=== PATIENT | male | born 1985 | race African-American/Black ===

== ENCOUNTER 2017-05-25 09:43 | Emergency (ER) | payer SELFPAY ==
[~2017-05-25 09:43] MED LIST: SULF1TAB24 PO
--- NOTE | 2017-05-25 11:08 | PHYS DOC ---
Past Medical History Past Medical History: No Pertinent History Past Surgical History: No Surgical History Alcohol Use: Occasionally Drug Use: None Adult General Chief Complaint Chief Complaint: HEADACHE HPI HPI Patient is a 31 year old male who presents with intermittent right-sided headaches for the last 2 months. It does improve when he takes ibuprofen or Tylenol but then it recurs. He denies any fevers, falls, trauma, no recent sinus drainage, no ear pain. He denies any neck stiffness. He has been seen by his primary care physician but denies any workup for the headaches. pcp is Dr. Arias. Review of Systems Review of Systems Constitutional: Denies fever or chills Eyes: Denies eye pain or discharge HENT: Denies nasal congestion or sore throat Respiratory: Denies cough or shortness of breath [] Cardiovascular: Denies chest pain or edema GI: Denies abdominal pain, no nausea or vomiting : Denies dysuria Musculoskeletal: Denies back pain Extremities: denies joint pain [] Integument: Denies rash Neurologic: denies focal weakness , denies sensory changes [] Current Medications Current Medications Current Medications Medications (Trade) Dose Ordered Sig/Mary Start Time Stop Time Status Last Admin Dose Admin Ibuprofen (Motrin) 800 mg 1X ONCE 05/25/17 11:15 05/25/17 11:16 DC 05/25/17 11:23 800 MG Allergies Allergies Allergies Coded Allergies Type Severity Reaction Last Updated Verified No Known Drug Allergies 11/25/14 No Physical Exam Physical Exam Constitutional: Well developed, well nourished, no acute distress, non-toxic appearance. [] HENT: Normocephalic, atraumatic, bilateral external ears normal, oropharynx moist, no oral exudates, nose normal. [] Eyes: PERRLA, EOMI, conjunctiva normal, no discharge. [] Neck: Normal range of motion, no tenderness, supple, no stridor. [] Cardiovascular:Heart rate regular with regular rhythm, no murmur [] Lungs & Thorax: Bilateral breath sounds clear to auscultation, no wheeze Abdomen: Bowel sounds normal, soft, no tenderness, no masses, no pulsatile masses. [] Skin: Warm, dry, no erythema, no rash. [] Back: No tenderness, no CVA tenderness. [] Extremities: No tenderness, no cyanosis, no clubbing, ROM intact, no edema. [] Neurologic: Alert and oriented X 3, normal motor function, normal sensory function, no focal deficits noted. Cranial nerves II through XII intact Psychologic: Affect normal, judgement normal, mood normal. [] Current Patient Data Vital Signs Vital Signs Date Time Temp Pulse Resp B/P (MAP) Pulse Ox O2 Delivery O2 Flow Rate FiO2 05/25/17 11:02 98.1 67 16 141/83 (102) 99 Room Air 98.1 EKG EKG [] Radiology/Procedures Radiology/Procedures CT head: Findings: The ventricles and sulci are normal for the patient's age. No mass-effect, intracranial mass, midline shift, hemorrhage or obvious acute infarction is identified. Basilar cisterns are patent. Bone windows demonstrate no significant calvarial abnormality. The visualized paranasal sinuses appear clear. Impression: 1. No acute intracranial process. Course & Med Decision Making Course & Med Decision Making Pertinent Labs and Imaging studies reviewed. (See chart for details) pt was given ibuprofen for headache. CT of the head was performed due to the ongoing headaches. No acute findings on Ct. Pt to f/u with Dr. Arias, ibuprofen or Tylenol as needed for headaches. Dragon Disclaimer Dragon Disclaimer This electronic medical record was generated, in whole or in part, using a voice recognition dictation system. Departure Departure Impression: Primary Impression: Headache Disposition: 01 HOME, SELF-CARE Condition: IMPROVED Referrals: ARIELA ARIAS MD (PCP) NEDA CASTRO MD May 25, 2017 11:08
[2017-05-25] MEDS ORDERED: IBUPROFEN 800 MG TABLET. PO ONE (11:15)
--- NOTE | 2017-05-25 11:45 | RAD ---
CT head without contrast History: Intermittent headache for 2 months. Comparison: 01/05/2011. Procedure: Axial images are obtained of the head from the skull base through the vertex without IV contrast. Findings: The ventricles and sulci are normal for the patient's age. No mass-effect, intracranial mass, midline shift, hemorrhage or obvious acute infarction is identified. Basilar cisterns are patent. Bone windows demonstrate no significant calvarial abnormality. The visualized paranasal sinuses appear clear. Impression: 1. No acute intracranial process. PQRS Compliance Statement: One or more of the following individualized dose reduction techniques were utilized for this examination: 1. Automated exposure control 2. Adjustment of the mA and/or kV according to patient size 3. Use of iterative reconstruction technique
[2017-05-25 12:24] VITALS: BP 129/69
[2017-05-25] MEDS ORDERED: IBUP-1007 PO (12:39)
== END 2017-05-25 13:02 | disposition home or self-care (01) ==
LOC: ER 09:43
DX: R51 Headache (principal)
CPT/HCPCS: 70450; 99284-25

== ENCOUNTER 2017-07-30 07:23 | Emergency (ER) | payer OTHER ==
[2017-07-30] MEDS: IPRATRPIUM/ALBUTEROL 0.5/2.5MG 3 ML NEBU. NEB (07:47)
== END 2017-07-30 08:42 | disposition home or self-care (01) ==
LOC: ER 07:23
DX: J06.9 Acute upper respiratory infection, unspecified (principal); J45.909 Unspecified asthma, uncomplicated
CPT/HCPCS: 71020; 94640; 99284-25; J7620

== ENCOUNTER 2018-02-07 00:39 | Emergency (ER) | payer OTHER ==
[2018-02-07] MEDS: LIDOCAINE 2% 20 ML VIAL. IJ (02:10)
== END 2018-02-07 02:45 | disposition home or self-care (01) ==
LOC: ER 00:39
DX: L02.416 Cutaneous abscess of left lower limb (principal); I10 Essential (primary) hypertension
CPT/HCPCS: 10060; 99283; J2001

== ENCOUNTER 2018-03-09 21:51 | Emergency (ER) | payer OTHER ==
[~2018-03-09] VITALS: Ht 180.3 cm; Wt 97.5 kg
[~2018-03-09 21:51] MED LIST changes: +IBUP-1007 PO; +PRED20TA PO; +PROAIR HFA8.5 GM INH
[2018-03-09 21:57] VITALS: BP 141/89
--- NOTE | 2018-03-09 22:06 | PHYS DOC ---
Past Medical History Past Medical History: Hypertension Past Surgical History: No Surgical History Alcohol Use: None Drug Use: None Adult General Chief Complaint Chief Complaint: ABSCESS HPI HPI Patient is a 32 year old male with history of hypertension who presents with an abscess on the left inner thigh that he noted 4 days ago. Patient denies any fever. Denies any nausea vomiting. Review of Systems Review of Systems Constitutional: Denies fever or chills []] Musculoskeletal: Denies back pain or joint pain [] Integument: Reports abscess on the left inner thigh Neurologic: Denies headache, focal weakness or sensory changes [] All other systems were reviewed and found to be within normal limits, except as documented in this note. Current Medications Current Medications Current Medications Medications (Trade) Dose Ordered Sig/Mary Start Time Stop Time Status Last Admin Dose Admin Acetaminophen/ Hydrocodone Bitart (Lortab 5/325) 1 tab 1X ONCE 03/09/18 22:15 03/09/18 22:16 DC 03/09/18 22:10 1 TAB Diphtheria/ Tetanus/Acell Pertussis (Boostrix) 0.5 ml ONCE ONCE 03/09/18 22:15 03/09/18 22:16 DC Lidocaine/Sodium Bicarbonate (Buffered Lidocaine 1%) 3 ml 1X ONCE 03/09/18 22:15 03/09/18 22:16 DC 03/09/18 22:10 3 ML Naproxen (Naprosyn) 500 mg 1X ONCE 03/09/18 22:15 03/09/18 22:16 DC 03/09/18 22:10 500 MG Allergies Allergies Allergies Coded Allergies Type Severity Reaction Last Updated Verified No Known Drug Allergies 11/25/14 No Physical Exam Physical Exam Constitutional: Well developed, well nourished, no acute distress, non-toxic appearance. [] Skin: Warm, dry, left inner thigh with an indurated area approximately 2 x 2 centimeters with surrounding cellulitis. The area is warm tender to touch and very fluctuant. Back: No tenderness, no CVA tenderness. [] Extremities: No tenderness, no cyanosis, no clubbing, ROM intact, no edema. [] Neurologic: Alert and oriented X 3, normal motor function, normal sensory function, no focal deficits noted. [] Psychologic: Affect normal, judgement normal, mood normal. [] Current Patient Data Vital Signs Vital Signs Date Time Temp Pulse Resp B/P (MAP) Pulse Ox O2 Delivery O2 Flow Rate FiO2 03/09/18 22:10 16 98 Room Air 03/09/18 21:57 98.9 87 141/89 (106) 98.9 EKG EKG [] Radiology/Procedures Radiology/Procedures Indication: abscess of the left inner thigh Procedure: The patient was positioned appropriately. Local anesthesia was 1% buffered lidocaine. An incision was then made over the apex of the lesion with an 11 blade and mild amount of yellow bloody material was expressed. The drainage cavity was irrigated and covered with sterile gauze. The patients tetanus status updated as needed. The patient tolerated the procedure well. Complications: none.[] Course & Med Decision Making Course & Med Decision Making Pertinent Labs and Imaging studies reviewed. (See chart for details) Patient has an abscess with cellulitis to the left inner thigh that was opened up and drained by me as noted in procedures. It appears to come from ingrown hairs. Tetanus is up-to-date. Discharged with Bactrim. Wound care instructions and return precautions provided. Dragon Disclaimer Dragon Disclaimer This electronic medical record was generated, in whole or in part, using a voice recognition dictation system. Departure Departure Impression: Primary Impression: Cellulitis and abscess of left leg Disposition: 01 HOME, SELF-CARE Condition: STABLE Referrals: ARIELA ARIAS MD (PCP) Follow-up with your doctor in 1-2 weeks as needed Patient Instructions: Abscess, Cellulitis, [id number] Additional Instructions: You were seen for an abscess to the left inner thigh that was opened up and drained in the emergency room. You can shower and keep the area clean and dry. Apply warm compresses to the area twice a day. Take the prescribed antibiotics until completed. Follow-up with your own doctor in 1-2 weeks. Come back to the emergency room at any point symptoms worsen. Scripts Hydrocodone/Apap 5-325 (NORCO 5-325 TABLET) 1 Each Tablet 1 TAB PO Q6HRS, #12 TAB Prov: ESTEVAN BENTLEY APRN 03/09/18 Sulfamethoxazole/Trimethoprim (BACTRIM DS TABLET) 1 Each Tablet 1 TAB PO BID, #20 TAB Prov: ESTEVAN BENTLEY APRN 03/09/18 ESTEVAN BENTLEY APRN Mar 09, 2018 22:06
[2018-03-09] MEDS ORDERED: NAPROXEN 500 MG TABLET PO ONE (22:15)
[2018-03-09] MEDS ORDERED: DIPHTH,PERTUSS(ACELL),TET TOX 0.5 ML DISP.SYRIN. VAX IM ONE (22:15)
[2018-03-09] MEDS ORDERED: HYDROcodone/APAP 5/325MG 1 TAB TABLET PO ONE (22:15)
[2018-03-09] MEDS ORDERED: LIDOCAINE WITH 8.4% SOD BICARB 3 ML DISP.SYRIN. INJ ONE (22:15)
[2018-03-09] MEDS ORDERED: HYDR-971 PO (22:43)
[2018-03-09] MEDS ORDERED: SULF1TAB24 PO (22:43)
== END 2018-03-09 23:30 | disposition home or self-care (01) ==
LOC: ER 21:51
DX: L02.416 Cutaneous abscess of left lower limb (principal); L03.116 Cellulitis of left lower limb; I10 Essential (primary) hypertension
CPT/HCPCS: 10060; 99283-25

== ENCOUNTER 2018-11-05 16:35 | Emergency (ER) | payer OTHER ==
[~2018-11-05] VITALS: Ht 180.3 cm; Wt 98.4 kg
[~2018-11-05 16:35] MED LIST changes: +ALBU2.5V8 INH; +CYCL10TA2 PO; +DICL50TA2 PO; +HYDR-3164 PO; +METH4TAB2 PO; -PROAIR HFA8.5 GM INH
[2018-11-05 16:56] VITALS: BP 171/93
[2018-11-05] MEDS ORDERED: SULF1TAB24 PO (17:03)
--- NOTE | 2018-11-05 17:03 | PHYS DOC ---
Past Medical History Past Medical History: Hypertension Past Surgical History: No Surgical History Alcohol Use: Occasionally Drug Use: None Adult General Chief Complaint Chief Complaint: HAND PROBLEM HPI HPI Patient is a 33 year old male presents for evaluation of insect bite to the left hand and surrounding redness and swelling. He reports he noticed the bite a couple days ago, it has been training spontaneously. He states today his noticed his hand was more swollen than normal. He has not had any fevers, nausea or vomiting. Review of Systems Review of Systems Constitutional: Denies fever or chills [] Eyes: Denies change in visual acuity, redness, or eye pain [] HENT: Denies nasal congestion or sore throat [] Respiratory: Denies cough or shortness of breath [] Cardiovascular: No additional information not addressed in HPI [] GI: Denies abdominal pain, nausea, vomiting, bloody stools or diarrhea [] : Denies dysuria or hematuria [] Musculoskeletal: Denies back pain or joint pain [] Integument: left hand, redness and swelling Neurologic: Denies headache, focal weakness or sensory changes [] Endocrine: Denies polyuria or polydipsia [] All other systems were reviewed and found to be within normal limits, except as documented in this note. Current Medications Current Medications Current Medications Medications (Trade) Dose Ordered Sig/Mary Start Time Stop Time Status Last Admin Dose Admin Ceftriaxone Sodium (Rocephin Im) 1 gm STK-MED ONCE 11/05/18 17:20 11/05/18 17:21 DC Allergies Allergies Allergies Coded Allergies Type Severity Reaction Last Updated Verified No Known Drug Allergies 11/25/14 No Physical Exam Physical Exam Constitutional: Well developed, well nourished, no acute distress, non-toxic appearance. [] Neck: Normal range of motion, no tenderness, supple, no stridor. [] Cardiovascular:Heart rate regular rhythm, no murmur [] Lungs & Thorax: Bilateral breath sounds clear to auscultation [] Skin: 1 cm area on lateral dorsal aspect of left hand of non-fluctuant, non- indurated abscess that has a small central area that has opened and is draining serosanguineous fluid, area surrounding is edematous and erythematous[] Extremities: No tenderness, no cyanosis, no clubbing, ROM intact. [] Neurologic: Alert and oriented X 3, normal motor function, normal sensory function, no focal deficits noted. [] Psychologic: Affect normal, judgement normal, mood normal. [] Current Patient Data Vital Signs Vital Signs Date Time Temp Pulse Resp B/P (MAP) Pulse Ox O2 Delivery O2 Flow Rate FiO2 11/05/18 16:56 97.9 73 19 171/93 (119) 97 Room Air 97.9 EKG EKG [] Radiology/Procedures Radiology/Procedures [] Course & Med Decision Making Course & Med Decision Making Pertinent Labs and Imaging studies reviewed. (See chart for details) [Patient is treated for cellulitis to the left hand, in the hand to encourage more draining from the area that is currently having some drainage. No squeezing of the area to try to express drainage. Patient is given IM Rocephin. Started on Bactrim, states has good primary care follow-up, will call tomorrow to get first available appointment this week. Discussed strict return precautions, including but not limited to fever, vomiting, nausea, generalized ill feeling. Patient verbalizes understanding of discharge instructions.] Dragon Disclaimer Dragon Disclaimer This electronic medical record was generated, in whole or in part, using a voice recognition dictation system. Departure Departure Impression: Primary Impression: Cellulitis of left hand Disposition: HOME, SELF-CARE Condition: STABLE Referrals: ARIELA ARIAS MD (PCP) Patient Instructions: Cellulitis, [id number] Scripts Sulfamethoxazole/Trimethoprim (BACTRIM DS TABLET) 1 Each Tablet 1 TAB PO BID, #20 TAB Prov: LORRAINE LANE APRN 11/05/[address] APRN Nov 05, 2018 17:03
[2018-11-05] MEDS ORDERED: cefTRIAXone IM 1 GM VIAL IM ONE ×2 (17:20→17:30)
== END 2018-11-05 17:51 | disposition home or self-care (01) ==
LOC: ER 16:35
DX: L03.114 Cellulitis of left upper limb (principal); I10 Essential (primary) hypertension; W57.XXXA Bitten or stung by nonvenomous insect and other nonvenomous arthropods, initial encounter; Y93.89 Activity, other specified; Y92.89 Other specified places as the place of occurrence of the external cause; Y99.8 Other external cause status
CPT/HCPCS: 96372; 99283; J0696

== ENCOUNTER 2019-09-12 22:04 | Emergency (ER) | payer OTHER ==
[~2019-09-12] VITALS: Ht 180.3 cm; Wt 102.0 kg
[2019-09-12 23:17] LABS: INFLUENZA A PATIENT NEGATIVE (NEGATIVE); INFLUENZA B PATIENT NEGATIVE (NEGATIVE)
[2019-09-12] MEDS ORDERED: OSEL75CA PO (23:41)
--- NOTE | 2019-09-12 23:41 | PHYS DOC ---
Past Medical History Past Medical History: Hypertension Past Surgical History: No Surgical History Smoking Status: Current Every Day Smoker Alcohol Use: Occasionally Drug Use: None Adult General Chief Complaint Chief Complaint: FLU SYMPTOM HPI HPI Patient is a 34 year old AA who presents to the emergency department with complaints of body aches, fatigue, chills, cough, posttussive emesis x1, headache, and congestion that began today. Patient states that his was recently diagnosed with influenza A. He denies any abdominal pain, diarrhea, chest pain, palpitations, shortness of breath, or wheezing. Review of Systems Review of Systems All other ROS is negative unless otherwise noted in HPI. Current Medications Current Medications Current Medications Medications (Trade) Dose Ordered Sig/Mary Start Time Stop Time Status Last Admin Dose Admin Acetaminophen (Tylenol) 1,000 mg 1X ONCE 09/13/19 00:00 09/12/19 23:55 DC 09/12/19 23:44 1,000 MG Ibuprofen (Motrin) 600 mg 1X ONCE 09/13/19 00:00 09/12/19 23:55 DC 09/12/19 23:44 600 MG Allergies Allergies Allergies Coded Allergies Type Severity Reaction Last Updated Verified No Known Drug Allergies 11/25/14 No Physical Exam Physical Exam See Above Constitutional: Well developed, well nourished, no acute distress, ill appearance HENT: Normocephalic, atraumatic, bilateral external ears normal, bilateral TMs normal, posterior pharynx normal oropharynx moist, nose congested with erythema and edema of the nasal turbinates bilaterally Eyes: PERRLA, conjunctiva injected bilaterally, no discharge. [] Neck: Normal range of motion, no stridor. [] Cardiovascular:Heart rate regular rhythm, no murmur [] Lungs & Thorax: Bilateral breath sounds clear to auscultation, Respirations even and unlabored, no retractions, no respiratory distress Skin: Flushed, hot, dry, no rash. [] Back: No tenderness Extremities: No cyanosis, ROM intact Neurologic: Alert and oriented X 3, no focal deficits noted. [] Psychologic: Affect normal, judgement normal, mood normal. Current Patient Data Vital Signs Vital Signs Date Time Temp Pulse Resp B/P (MAP) Pulse Ox O2 Delivery O2 Flow Rate FiO2 09/12/19 23:46 131/72 (91) 09/12/19 22:20 102.0 115 18 96 Room Air 102.0 Lab Values Laboratory Tests Test 09/12/19 22:25 Influenza Type A Antigen Negative (NEGATIVE) Influenza Type B Antigen Negative (NEGATIVE) EKG EKG [] Radiology/Procedures Radiology/Procedures Rapid flu negative[] Course & Med Decision Making Course & Med Decision Making Pertinent Labs and Imaging studies reviewed. (See chart for details) Is a 34-year-old male who presented to the emergency room with complaints of flulike symptoms. Patient states that his was diagnosed with influenza a couple of days ago. His rapid influenza was negative, however based on patient's physical exam and appearance will treat with tamiflu. She had a fever 102 on arrival patient denied taking Tylenol or ibuprofen prior to arrival. Patient was given 1000 mg of Tylenol and 600 mg of ibuprofen prior to discharge. [] Dragon Disclaimer Dragon Disclaimer This electronic medical record was generated, in whole or in part, using a voice recognition dictation system. Departure Departure Impression: Primary Impression: Influenza-like illness Disposition: HOME, SELF-CARE Condition: STABLE Referrals: ARIELA ARIAS MD (PCP) Patient Instructions: Influenza, Adult, [id number] Additional Instructions: Fill the prescription and take as directed. Alternate Tylenol and ibuprofen as needed for fever. Increase clear fluids and rest. Diet as tolerated. Recommend use of [id number] flu medications as needed for relief of your symptoms. Follow up with your primary care doctor if symptoms persist, return to the ER symptoms worsen. Scripts Oseltamivir Phosphate (TAMIFLU) 75 Mg Capsule 1 CAP PO BID for 5 Days, #10 CAP 0 Refills Prov: DEANGELO TRUONG APRN 09/12/19 DEANGELO TRUONG APRN Sep 12, 2019 23:41
[2019-09-12 23:46] VITALS: BP 131/72
[2019-09-13] MEDS ORDERED: IBUPROFEN 400 MG TABLET. PO ONE
[2019-09-13] MEDS ORDERED: ACETAMINOPHEN 500 MG TABLET PO ONE
== END 2019-09-12 23:55 | disposition home or self-care (01) ==
LOC: ER 22:04
DX: J11.1 Influenza due to unidentified influenza virus with other respiratory manifestations (principal); I10 Essential (primary) hypertension; F17.200 Nicotine dependence, unspecified, uncomplicated
CPT/HCPCS: 87804; 99283